=== PATIENT | female | born 1995 | race African-American/Black ===

== ENCOUNTER → 2018-08-14 | Outpatient (REF) | payer OTHER, SELFPAY ==
[2018-08-14 14:08] LABS: CHLAMYDIA DNA AMPLIFICATION NEGATIVE (NEGATIVE); GC DNA AMPLIFICATION NEGATIVE (NEGATIVE)
== END ==
LOC: M LAB REF 11:45
PROVIDERS: ATTEND Obstetrics & Gynecology
DX: R10.2 Pelvic and perineal pain (principal); T83.32XA Displacement of intrauterine contraceptive device, initial encounter; N76.0 Acute vaginitis

== ENCOUNTER → 2018-08-15 | Outpatient (CLI) | payer OTHER ==
[2018-08-15 20:39] LABS: HIV 1&2 SCREEN CENTAUR NEGATIVE (NEGATIVE)
--- NOTE | 2018-08-16 07:25 | REP ---
Clinical: Pelvic pain. IUD placement. Technique: Transabdominal pelvic ultrasound followed by transvaginal examination for better evaluation of the endometrium and adnexa with color Doppler evaluation of the ovaries. Findings: Bladder is normal and measures 8.4 x 6.6 x 5.7 cm. Normal anteverted uterus measures 8.2 x 3.6 x 5.0 cm. Endometrial complex measures 3.4 mm thickness. IUD identified in satisfactory position within the endocervical canal. Bilateral ovaries are normal in appearance and vascularity without torsion. Right ovary measures 3.4 x 2.0 x 3.1 cm and includes 2.4 cm dominant follicle/physiologic cyst; RI 0.50 . Left ovary measures 2.8 x 2.0 x 2.2 cm; RI 0.54 . No pelvic fluid or adnexal mass lesion. Impression: Normal pelvic ultrasound. IUD in satisfactory position. Electronically Signed by Crescencio Salmon MD 08/16/2018 07:16 A
[2018-08-17 11:51] LABS: HEPATITIS C VIRUS ABY INDEX 0.1 INDEX (<0.8)
== END ==
LOC: M SMT 09:13 → EDUNIT# 09:30
PROVIDERS: ATTEND Obstetrics & Gynecology
DX: R10.2 Pelvic and perineal pain (principal); Z97.5 Presence of (intrauterine) contraceptive device; N85.4 Malposition of uterus; N83.201 Unspecified ovarian cyst, right side

== ENCOUNTER → 2018-10-11 | Outpatient (CLI) | payer OTHER ==
--- NOTE | 2018-10-11 17:12 | REP ---
LEFT FOOT, FOUR VIEWS: HISTORY: Contusion. There is no acute fracture or dislocation. The joint spaces are normal in appearance. IMPRESSION: There is no acute fracture or dislocation. Electronically Signed by Akbar Cheatham MD 10/11/2018 05:14 P
== END ==
LOC: M WUC 12:47
PROVIDERS: ATTEND Physician Assistant
DX: S90.32XA Contusion of left foot, initial encounter (principal); X58.XXXA Exposure to other specified factors, initial encounter; Y92.9 Unspecified place or not applicable

== ENCOUNTER → 2019-02-26 | Outpatient (CLI) | payer OTHER | LOC: M OUTALCOH 07:54 | PROVIDERS: ATTEND Psychiatry & Neurology Psychiatry | DX: Z03.89 Encounter for observation for other suspected diseases and conditions ruled out (principal) ==

== ENCOUNTER 2019-03-26 15:00 | Outpatient (RCR) | payer OTHER, SELFPAY | END 2019-03-28 | LOC: M OUTALCOH 15:00 | PROVIDERS: ATTEND Psychiatry & Neurology Psychiatry | DX: F10.10 Alcohol abuse, uncomplicated (principal) | CPT/HCPCS: 90832; 90834; H0050 ==

== ENCOUNTER 2019-04-23 16:00 | Outpatient (RCR) | payer SELFPAY | END 2019-04-27 | LOC: M OUTALCOH 16:00 | PROVIDERS: ATTEND Psychiatry & Neurology Psychiatry | DX: F10.10 Alcohol abuse, uncomplicated (principal) ==

== ENCOUNTER 2019-05-21 16:00 | Outpatient (RCR) | payer SELFPAY | END 2019-05-28 | LOC: M OUTALCOH 16:00 | PROVIDERS: ATTEND Psychiatry & Neurology Psychiatry | DX: F10.10 Alcohol abuse, uncomplicated (principal) ==

== ENCOUNTER → 2019-06-28 | Outpatient (RCR) | payer MEDICAID, SELFPAY | LOC: M OUTALCOH 06-04 15:22 | PROVIDERS: ATTEND Psychiatry & Neurology Psychiatry | DX: F10.10 Alcohol abuse, uncomplicated (principal) ==

== ENCOUNTER → 2019-10-24 | Outpatient (REF) | payer OTHER, SELFPAY ==
[2019-10-25 15:09] LABS: CHLAMYDIA DNA AMPLIFICATION NEGATIVE (NEGATIVE); GC DNA AMPLIFICATION NEGATIVE (NEGATIVE)
== END ==
LOC: M SFHCLERA 15:35
PROVIDERS: ATTEND Physician Assistant
DX: N89.8 Other specified noninflammatory disorders of vagina (principal)